=== PATIENT | male | born 1950 | race Caucasian/White ===

== ENCOUNTER → 2020-05-19 10:06 | Outpatient (BNVA) | payer MEDICARE, SELFPAY | PROVIDERS: PCP Family Medicine; Visit Provider Urology | DX: C67.9 Malignant neoplasm of bladder, unspecified (principal); N40.1 Benign prostatic hyperplasia with lower urinary tract symptoms; N13.8 Other obstructive and reflux uropathy | CPT/HCPCS: 52000; 99212 ==

== ENCOUNTER 2020-06-01 08:48 | Day surgery (SDC) | payer MEDICARE, SELFPAY ==
--- NOTE | 2020-05-29 11:59 | HO.ANESPROP2 ---
Documented by User: Kacie Fink 05/29/20 12:07 HPI - Anesthesia Eval Consult details Narrative: 69yo M for Cystoscopy, TURB PMFSH Past Medical History Medical History Anemia Bladder cancer BPH loc w urin obs/LUTS GERD (gastroesophageal reflux disease) Gout HLD (hyperlipidemia) HTN (hypertension) Hypothyroid Osteoarthritis Renal cancer S/p nephrectomy Surgical History Surgical History H/O nephroureterectomy History of biopsy of bladder Social History Social History Advance Directives: No Advance Directives Information Provided: No Meds Allergies Allergy/AdvReac Type Severity Reaction Status Date / Time No Known Allergies Allergy Unverified 04/16/20 19:02 [No Known Allergies*] Exam Exam Date and Time: May 29, 2020 1159 Pertinent Lab Results Pertinent Lab Results: Laboratory Tests 12/16/19 09:40 BUN 20 H Creatinine 1.20 Assessment and Plan Assessment Anesthesia Assessment: Chart Reviewed Documented by User: Shaista Rodríguez 06/01/20 10:19 PMFSH Past Medical History Medical History Anemia Bladder cancer BPH loc w urin obs/LUTS GERD (gastroesophageal reflux disease) Gout HLD (hyperlipidemia) HTN (hypertension) Hypothyroid Osteoarthritis Renal cancer S/p nephrectomy Surgical History Surgical History H/O nephroureterectomy History of biopsy of bladder Social History Social History Advance Directives: No Advance Directives Information Provided: No Meds Allergies Allergy/AdvReac Type Severity Reaction Status Date / Time No Known Allergies Allergy Unverified 04/16/20 19:02 [No Known Allergies*]
[2020-06-01] VITALS (12 sets, daily range): BP systolic 167–185; BP diastolic 74–105; PULSE 81–97; RESP 16–20; TEMP 36.4–37.1; O2SAT 95–98
[2020-06-01] MEDS: levoFLOXacin 500 MG TABLET PO (11:00)
--- NOTE | 2020-06-01 11:06 | MHC.SHP ---
Pre-Procedural Eval Section A The patient is an INPATIENT: No Changes since office visit: No Cold of Flu in the past 2 weeks, No New Medical Problems, No Changes in Medication and No Patient answered all questions The History & Physical has been completed within 30 days and I have reviewed it.: Yes Section B Chief Complaint: hx of Bladder Cancer Allergies: Allergies Allergy/AdvReac Type Severity Reaction Status Date / Time No Known Allergies Allergy Unverified 04/16/20 19:02 [No Known Allergies*] Plan Patient has been examined and remains a candidate for the planned procedure
[2020-06-01] MEDS: Lactated Ringers 1,000 ML 50 ML IVCONT (11:12)
--- NOTE | 2020-06-01 11:20 | P.CONAN_ITS ---
[facility] Past Medical History Medical History Anemia Bladder cancer BPH loc w urin obs/LUTS GERD (gastroesophageal reflux disease) Gout HLD (hyperlipidemia) HTN (hypertension) Hypothyroid Osteoarthritis Renal cancer S/p nephrectomy Surgical History Surgical History H/O nephroureterectomy History of biopsy of bladder Social History Social History Are you a primary insurance healthcare consultant to a significant other at home: No Do you presently have visiting nurse or other home services: No Smoking Status: Never smoker Use of substances other than those prescribed or required for medical reasons: No Advance Directives: No Advance Directives Information Provided: No Meds Allergies Allergy/AdvReac Type Severity Reaction Status Date / Time No Known Allergies Allergy Unverified 04/16/20 19:02 [No Known Allergies*] Exam Exam Date and Time: June 01, 2020 1120 Height,Weight and Vital Signs: Height 5 ft 3 in Weight 72.575 kg Last Vital Signs Temp 98.7 F 06/01/20 10:41 Pulse 81 06/01/20 10:41 Resp 16 06/01/20 10:41 BP 167/84 H 06/01/20 10:41 Pulse Ox 97 06/01/20 10:41 Airway TM Dist: >3cm Neck ROM: Full Denture: Upper and Lower Assessment and Plan Final Anesthetic Review NPO: Yes ASA Class: II Final Preanesthetic Review: No Changes in Pt Med Stat, Meds/Allgs Chart Reviewed, Consent Obtained/Reviewed and DNR Form (If Appl.) Patient Risk: Low
--- NOTE | 2020-06-01 12:10 | PM.OP ---
Brief Operative Note Date of procedure: 06/01/20 Pre-op diagnosis: Bladder Cancer Procedure: Bladder Cancer - medium Surgeon: Will Early MD Anesthesia: GLMA Estimated blood loss (mL): 0 Pathology: none sent Condition: stable Disposition: same day
--- NOTE | 2020-06-01 12:11 | P.OP_ITS ---
Operative Note Operative Note Narrative: PreOperative Diagnosis: Bladder tumor superficial Post Operative Diagnosis: bladder tumor superficial Procedure: TURBT medium, gemcitabine bladder instillation Surgeon: Dr Will Early Anesthesia: general Indications for procedure: 69-year-old male. Known bladder cancer patient. Had recurrence on left side wall superficial. Was larger than a quarter. Needed cauterization in operating room and gemcitabine. Risks and benefits discussed. Procedure: After informed consent was verified patient brought to the operating room placed in a supine position. Anesthesia administered per protocol. Patient placed in modified dorsal lithotomy position and prepped and draped in sterile fashion. He was prepped and draped in sterile fashion. Safety pause time-out was performed. 26 [place] resectoscope placed. No abnormality noted anterior posterior urethra. left bladder sidewall with superficial disease. This was all fulgurated. It did come down close to the ureteric orifice. At completion resectoscope was removed. No specimens were sent. Bernal catheter placed. 2 g gemcitabine in 100 mg normal saline placed. This will dwell for 1 hour.
[2020-06-01] MEDS: oxyCODONE HCl Immed Release 5 MG TABLET PO (12:26)
[2020-06-01] MEDS: fentaNYL citrate/PF 100 MCG/2 ML VIAL 25 MCG IVPUSH ×4 (12:28→12:55)
== END 2020-06-01 23:59 | disposition home or self-care (01) ==
PROVIDERS: PCP Family Medicine; Visit Provider Urology
PROC: 0TJB8ZZ Inspection of Bladder, Via Natural or Artificial Opening Endoscopic (ICD-10-PCS; CPT 52000; principal; 2020-06-01 10:30)
DX: C67.9 Malignant neoplasm of bladder, unspecified (principal)
CPT/HCPCS: 52235; 51720; J1100; J2405; J3010; J9201

== ENCOUNTER 2021-05-14 13:28 | Outpatient (REF) | payer MEDICARE, SELFPAY ==
[2021-05-14 17:40] LABS: Urine Cytology See Pathology rpt
== END 2021-05-14 13:29 | disposition home or self-care (01) ==
LOC: HO.LAB 13:28
PROVIDERS: Visit Provider Urology
DX: C67.9 Malignant neoplasm of bladder, unspecified (principal); N40.1 Benign prostatic hyperplasia with lower urinary tract symptoms; C66.9 Malignant neoplasm of unspecified ureter
CPT/HCPCS: 88112; 99212

== ENCOUNTER 2021-06-23 12:30 | Outpatient (REF) | payer MEDICARE, SELFPAY ==
[2021-06-23 16:48] LABS: Urine Cytology See Pathology rpt
== END 2021-06-23 12:31 | disposition home or self-care (01) ==
LOC: HO.LAB 12:30
PROVIDERS: Visit Provider Urology
DX: C67.9 Malignant neoplasm of bladder, unspecified (principal); C79.02 Secondary malignant neoplasm of left kidney and renal pelvis; N40.1 Benign prostatic hyperplasia with lower urinary tract symptoms; N13.8 Other obstructive and reflux uropathy; I10 Essential (primary) hypertension; E78.5 Hyperlipidemia, unspecified; E03.9 Hypothyroidism, unspecified; Z90.5 Acquired absence of kidney; Z90.6 Acquired absence of other parts of urinary tract
CPT/HCPCS: 52000; 88112; 99212

== ENCOUNTER 2021-08-02 08:31 | Day surgery (SDC) | payer MEDICARE, MEDICAID, SELFPAY ==
--- NOTE | 2021-07-28 15:20 | P.CONAN_ITS ---
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 (Acute) Bladder cancer (Acute) BPH loc w urin obs/LUTS (Acute) Past Medical History Medical History (Updated 06/23/21 @ 13:44 by Will Early MD) Anemia Bladder cancer BPH loc w urin obs/LUTS GERD (gastroesophageal reflux disease) Gout HLD (hyperlipidemia) HTN (hypertension) Hypothyroid Osteoarthritis Surgical History Surgical History (Updated 07/26/21 @ 13:34 by Rossy Beard RN) H/O nephroureterectomy History of biopsy of bladder Social History Social History Are you a primary workforce investment act career manager to a significant other at home: No Do you presently have visiting nurse or other home services: No Patient Tobacco Use Status: Tobacco use Unknown Advance Directives Information Provided: Yes (informational brochure mailed) Advance Directives on File: No Meds Allergies Allergy/AdvReac Type Severity Reaction Status Date / Time No Known Allergies Allergy Verified 06/23/21 13:15 [No Known Allergies*] Home Medications Medication Instructions Recorded Confirmed Last Taken Type acetaminophen 650 mg 1,300 mg PO Q8H PRN 05/14/21 07/26/21 Unknown History tablet,extended release (Arthritis Pain Reliever) allopurinol 100 mg tablet 200 mg PO DAILY 05/14/21 07/26/21 Unknown History atorvastatin 80 mg tablet 80 mg PO DAILY 05/14/21 07/26/21 Unknown History brimonidine 0.2 % eye drops 1 drp OPHTHALMIC (EYE) DAILY ml 05/14/21 07/26/21 Unknown History ergocalciferol (vitamin D2) 1,250 1,250 mcg PO QWEEK 05/14/21 07/26/21 Unknown History mcg (50,000 unit) capsule gemfibrozil 600 mg tablet 600 mg PO BID 05/14/21 07/26/21 Unknown History hydrochlorothiazide 25 mg tablet 25 mg PO DAILY 05/14/21 07/26/21 Unknown History lisinopril 40 mg tablet 40 mg PO DAILY 05/14/21 07/26/21 Unknown History melatonin 5 mg tablet 5 mg PO BEDTIME PRN 05/14/21 07/26/21 Unknown History Exam Exam Date and Time: July 28, 2021 1520 Height,Weight and Vital Signs: Height 6 ft 3 in Weight 72.575 kg Assessment and Plan Assessment Anesthesia Assessment: Chart Reviewed Documented by User: Everett Antonio 08/02/21 10:31 PMFSH Past Medical History Medical History (Updated 06/23/21 @ 13:44 by Will Early MD) Anemia Bladder cancer BPH loc w urin obs/LUTS GERD (gastroesophageal reflux disease) Gout HLD (hyperlipidemia) HTN (hypertension) Hypothyroid Osteoarthritis Family History Family history of problems with anesthesia: No Surgical History Surgical History (Updated 07/26/21 @ 13:34 by Rossy Beard RN) H/O nephroureterectomy History of biopsy of bladder History of Problems with Anesthesia: No Social History Social History Are you a primary workforce investment act career manager to a significant other at home: No Do you presently have visiting nurse or other home services: No Patient Tobacco Use Status: Tobacco use Unknown Advance Directives Information Provided: Yes (informational brochure mailed) Advance Directives on File: No Meds Allergies Allergy/AdvReac Type Severity Reaction Status Date / Time No Known Allergies Allergy Verified 06/23/21 13:15 [No Known Allergies*] Home Medications Medication Instructions Recorded Confirmed Last Taken Type acetaminophen 650 mg 1,300 mg PO Q8H PRN 05/14/21 07/26/21 Unknown History tablet,extended release (Arthritis Pain Reliever) allopurinol 100 mg tablet 200 mg PO DAILY 05/14/21 07/26/21 Unknown History atorvastatin 80 mg tablet 80 mg PO DAILY 05/14/21 07/26/21 Unknown History brimonidine 0.2 % eye drops 1 drp OPHTHALMIC (EYE) DAILY ml 05/14/21 07/26/21 Unknown History ergocalciferol (vitamin D2) 1,250 1,250 mcg PO QWEEK 05/14/21 07/26/21 Unknown History mcg (50,000 unit) capsule gemfibrozil 600 mg tablet 600 mg PO BID 05/14/21 07/26/21 Unknown History hydrochlorothiazide 25 mg tablet 25 mg PO DAILY 05/14/21 07/26/21 Unknown History lisinopril 40 mg tablet 40 mg PO DAILY 05/14/21 07/26/21 Unknown History melatonin 5 mg tablet 5 mg PO BEDTIME PRN 05/14/21 07/26/21 Unknown History Exam Airway Mallampati Class: II Neck ROM: Full Loose/Missing/Broken Teeth: Yes Heart: rrr Lungs: bl breath sounds Assessment and Plan Final Anesthetic Review Family History of Problems with Anesthesia: No History of Problems with Anesthesia: No NPO: Yes ASA Class: III Patient Risk: Intermediate Procedure Risk: Intermediate Anesthetic Plan Anesthetic Plan: GA Disposition: Standard PACU
[2021-08-02] VITALS (17 sets, daily range): BP systolic 132–223; BP diastolic 93–124; PULSE 74–103; RESP 16–22; TEMP 36.1–37; O2SAT 94–97
[2021-08-02] MEDS: Lactated Ringers 1,000 ML 100 ML IVCONT (09:15)
--- NOTE | 2021-08-02 11:22 | MHC.SHP ---
Pre-Procedural Eval Section A Date of Service: 08/02/21 Section B Chief Complaint: neoplasm of bladder Details of Present Illness: recurrent neoplasm bladder on cystoscopy in office Relevant Social History: None Present Medications: see Short Stay Collaborative assessment Medical History: Significant History History of Previous Operations: Relevant previous surgery/procedure and date(s) Allergies: Allergies Allergy/AdvReac Type Severity Reaction Status Date / Time No Known Allergies Allergy Verified 06/23/21 13:15 [No Known Allergies*] Review of Systems Sugical H&P ROS: Negative: Constitution, Cardiovascular, Respiratory, Neurological, Psychiatric, Hem-Onc, Allergic/Immunologic, Gastrointestinal, Genitourinary, Musculoskeletal, Integumentary, Endocrine and Eyes/Ears/Nose/Throat Exam Surgical H&P Exam: Normal: HEENT, Normal: Heart, Normal: Lungs, Normal: Extremities, Normal: Abdomen, Normal: Skin and Normal: Neurological Plan Diagnosis/Plan: Unchanged ( cystoscopy, TUR, gemcitabine installation) I have reviewed the history and physical and performed a pertinent physical examination on my patient. No changes have occurred unless specified.
--- NOTE | 2021-08-02 13:55 | P.OP_ITS ---
Operative Note Operative Note Date of Service: 08/02/21 Narrative: PreOperative Diagnosis: bladder cancer Post Operative Diagnosis: bladder cancer Procedure: TURBT medium and Gemcitabine installation Surgeon: Dr Will Early Anesthesia: general Indications for procedure: 71-year-old male. Prior prostatectomy with radiation and upper tract transitional carcinoma. Right nephro ureterectomy. Recurrent superficial bladder cancer. On surveillance cystoscopy found to have superficial recurrent cancer that has slowly progressed over 6 months. On right lower bladder sidewall. Recommendation TURBT with gemcitabine. Due to prior high-grade findings will need induction 6 week course when complete. Procedure: After informed consent was verified the patient was brought to the operating room and placed in a supine position. anesthesia was administered per protocol. the patient was placed in a modified dorsal lithotomy position and prepped and draped in a sterile fashion. Safety pause time-out was performed. Antibiotics were confirmed. A 26 [place] continuous flow resectoscope was inserted per urethra. The visual obturator was used in order to minimize potential for urethral damage. recurrent superficial tumors seen at right bladder neck area extending around the bladder neck from the 7 o'clock to 12 o'clock position. Area gently resected and fulgurated. Small areas recurrence seen at the 6 o'clock position on the trigone. No disease detected on posterior or lateral sidewalls. At the completion of the procedure the bladder was irrigated. The cystoscope was removed. A [address] [place] [address] Bernal catheter was inserted into the bladder. 10 cc was placed in the balloon. 2 g of gemcitabine in 100 cc of normal saline was instilled into the bladder. the flow from the catheter was left clamped. The inflow to the catheter was attached to a 3 L normal saline bag. The patient tolerated the procedure well. They were extubated in the operating room and transferred in stable condition to the recovery area. Gemcitabine will remain in the bladder for 1 hour. At the completion of 1 hour the clamp will be removed. The gemcitabine will be allowed to egress to the urine collection bag. The 3 L bag of normal saline will be run at maximum rate through the bladder in order to dilute any residual gemcitabine. The Bernal catheter will then be removed. Pathology: Recurrent superficial bladder cancer Drains: Bernal catheter
[2021-08-02] MEDS: Labetalol HCL 100 MG/20 ML VIAL 10 MG IVPUSH ×2 (15:59→16:41)
[2021-08-02] MEDS: lisinopriL 20 MG TABLET PO (16:52)
[2021-08-02] MEDS: oxyCODONE HCl Immed Release 5 MG TABLET PO (17:07)
[2021-08-02] MEDS: Acetaminophen 325 MG TABLET 650 MG PO (17:07)
== END 2021-08-02 18:02 | disposition home or self-care (01) ==
PROVIDERS: Visit Provider Urology
PROC: 0TBB8ZZ Excision of Bladder, Via Natural or Artificial Opening Endoscopic (ICD-10-PCS; CPT 52235; principal; 2021-08-02 11:00)
DX: D09.0 Carcinoma in situ of bladder (principal); D64.9 Anemia, unspecified; N40.1 Benign prostatic hyperplasia with lower urinary tract symptoms; I10 Essential (primary) hypertension; Z79.899 Other long term (current) drug therapy
CPT/HCPCS: 52235; 51720; 88307; 88342; J1100; J1956; J2250; J2405; J3010; J9201

== ENCOUNTER → 2021-08-10 15:05 | Outpatient (BNVA) | payer OTHER, MEDICARE, MEDICAID, SELFPAY | PROVIDERS: Visit Provider Urology | DX: Z48.3 Aftercare following surgery for neoplasm (principal); C67.9 Malignant neoplasm of bladder, unspecified; N40.1 Benign prostatic hyperplasia with lower urinary tract symptoms; N13.8 Other obstructive and reflux uropathy; Z85.528 Personal history of other malignant neoplasm of kidney; Z90.5 Acquired absence of kidney | CPT/HCPCS: Q3014 ==

== ENCOUNTER 2021-12-28 10:37 | Outpatient (REF) | payer OTHER, SELFPAY ==
[2021-12-28 17:47] LABS: Urine Cytology See Pathology rpt
== END 2021-12-28 10:38 | disposition home or self-care (01) ==
LOC: HO.LAB 10:37
PROVIDERS: Visit Provider Urology
DX: C67.9 Malignant neoplasm of bladder, unspecified (principal); D09.0 Carcinoma in situ of bladder
CPT/HCPCS: 52000; 88112; 99212

== ENCOUNTER 2022-01-17 13:06 | Day surgery (SDC) | payer OTHER, SELFPAY ==
--- NOTE | 2022-01-14 09:49 | HO.ANESPROP2 ---
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 (Acute) Bladder cancer (Acute) BPH loc w urin obs/LUTS (Acute) Past Medical History Medical History Anemia Bladder cancer BPH loc w urin obs/LUTS GERD (gastroesophageal reflux disease) Gout HLD (hyperlipidemia) HTN (hypertension) Hypothyroid Osteoarthritis Family History Family history of problems with anesthesia: No Surgical History Surgical History H/O nephroureterectomy History of biopsy of bladder History of Problems with Anesthesia: No Social History Social History Are you a primary career resource technician to a significant other at home: No Do you presently have visiting nurse or other home services: No Patient Tobacco Use Status: Tobacco use Unknown Meds Allergies Allergy/AdvReac Type Severity Reaction Status Date / Time No Known Allergies Allergy Verified 12/28/21 10:58 [No Known Allergies*] Home Medications Medication Instructions Recorded Confirmed Last Taken Type acetaminophen 650 mg 1,300 mg PO Q8H PRN Pain 05/14/21 07/26/21 Unknown History tablet,extended release (Arthritis Pain Reliever) allopurinol 100 mg tablet 200 mg PO DAILY 05/14/21 07/26/21 Unknown History atorvastatin 80 mg tablet 80 mg PO DAILY 05/14/21 07/26/21 Unknown History brimonidine 0.2 % eye drops 1 drp ophthalmic (eye) DAILY 05/14/21 07/26/21 Unknown History ergocalciferol (vitamin D2) 1,250 1,250 mcg PO QWEEK 05/14/21 07/26/21 Unknown History mcg (50,000 unit) capsule gemfibrozil 600 mg tablet 600 mg PO BID 05/14/21 07/26/21 Unknown History hydrochlorothiazide 25 mg tablet 25 mg PO DAILY 05/14/21 07/26/21 Unknown History lisinopril 40 mg tablet 40 mg PO DAILY 05/14/21 07/26/21 Unknown History melatonin 5 mg tablet 5 mg PO BEDTIME PRN insomnia 05/14/21 07/26/21 Unknown History Exam Exam Date and Time: January 14, [id number] Assessment and Plan Assessment Anesthesia Assessment: Chart Reviewed Final Anesthetic Review Family History of Problems with Anesthesia: No History of Problems with Anesthesia: No
[2022-01-17] VITALS (7 sets, daily range): BP systolic 133–177; BP diastolic 68–100; PULSE 81–105; RESP 16–20; TEMP 36.4–36.6; O2SAT 94–100; BMI 27.4
[2022-01-17] MEDS: Lactated Ringers 1,000 ML 100 ML IVCONT (14:51)
--- NOTE | 2022-01-17 17:24 | MHC.SHP ---
Pre-Procedural Eval Section A Date of Service: 01/17/22 The patient is an INPATIENT: No Changes since office visit: No Cold of Flu in the past 2 weeks, No New Medical Problems, No Changes in Medication and No Patient answered all questions The History & Physical has been completed within 30 days and I have reviewed it.: Yes Section B Chief Complaint: neoplasm of bladder Details of Present Illness: TURBT Allergies: Allergies Allergy/AdvReac Type Severity Reaction Status Date / Time No Known Allergies Allergy Verified 12/28/21 10:58 [No Known Allergies*] Review of Systems Sugical H&P ROS: Negative: Constitution, Cardiovascular, Respiratory, Neurological, Psychiatric, Hem-Onc, Allergic/Immunologic, Gastrointestinal, Genitourinary, Musculoskeletal, Integumentary, Endocrine and Eyes/Ears/Nose/Throat Exam Surgical H&P Exam: Normal: HEENT, Normal: Heart, Normal: Lungs, Normal: Extremities, Normal: Abdomen, Normal: Skin and Normal: Neurological Plan Diagnosis/Plan: Unchanged ( TUR of multiple small bladder tumor recurrences) I have reviewed the history and physical and performed a pertinent physical examination on my patient. No changes have occurred unless specified.
--- NOTE | 2022-01-17 18:54 | P.CONAN_ITS ---
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 (Acute) Bladder cancer (Acute) BPH loc w urin obs/LUTS (Acute) Past Medical History Medical History Anemia Bladder cancer BPH loc w urin obs/LUTS GERD (gastroesophageal reflux disease) Gout HLD (hyperlipidemia) HTN (hypertension) Hypothyroid Osteoarthritis Family History Family history of problems with anesthesia: No Surgical History Surgical History H/O nephroureterectomy History of biopsy of bladder History of Problems with Anesthesia: No Social History Social History Are you a primary hospice patient care secretary to a significant other at home: No Do you presently have visiting nurse or other home services: No Patient Tobacco Use Status: Former Tobacco user Tobacco use type: Cigarette Use of substances other than those prescribed or required for medical reasons: No Are you DNR?: No Advance Directives: No Advance Directives Information Provided: Yes Recently lost weight without trying: No Eating poorly because of decreased appetite: No Nutrition Risks: No Nutritional Risk Meds Allergies Allergy/AdvReac Type Severity Reaction Status Date / Time No Known Allergies Allergy Verified 12/28/21 10:58 [No Known Allergies*] Active Medications: Current Medications Acetaminophen (Acetaminophen 325 Mg Tablet) 650 mg PO ONCE ONE Stop: 01/17/22 18:47 Lactated Ringer's (Lr) 1,000 mls @ 100 mls/hr IVCONT .Q10H SOILA Last Admin: 01/17/22 14:51 Dose: 100 mls/hr Phenazopyridine HCl (Phenazopyridine Hcl 100 Mg Tablet) 100 mg PO ONCE ONE Stop: 01/17/22 18:47 Home Medications Medication Instructions Recorded Confirmed Last Taken Type acetaminophen 650 mg 1,300 mg PO Q8H PRN Pain 05/14/21 07/26/21 Unknown History tablet,extended release (Arthritis Pain Reliever) allopurinol 100 mg tablet 200 mg PO DAILY 05/14/21 07/26/21 Unknown History atorvastatin 80 mg tablet 80 mg PO DAILY 05/14/21 07/26/21 Unknown History brimonidine 0.2 % eye drops 1 drp ophthalmic (eye) DAILY 05/14/21 07/26/21 Unknown History ergocalciferol (vitamin D2) 1,250 1,250 mcg PO QWEEK 05/14/21 07/26/21 Unknown History mcg (50,000 unit) capsule gemfibrozil 600 mg tablet 600 mg PO BID 05/14/21 07/26/21 Unknown History hydrochlorothiazide 25 mg tablet 25 mg PO DAILY 05/14/21 07/26/21 Unknown History lisinopril 40 mg tablet 40 mg PO DAILY 05/14/21 07/26/21 01/17/22 History melatonin 5 mg tablet 5 mg PO BEDTIME PRN insomnia 05/14/21 07/26/21 Unknown History aspirin 01/17/22 01/17/22 Unknown History Exam Exam Date and Time: January 17, 2022 1854 Height,Weight and Vital Signs: Height 5 ft 3 in Weight 70.307 kg Last Vital Signs Temp 97.8 F 01/17/22 14:49 Pulse 81 01/17/22 14:49 Resp 18 01/17/22 14:49 BP 167/85 H 01/17/22 15:00 Pulse Ox 96 01/17/22 14:49 O2 Del Method 01/17/22 14:49 Airway Mallampati Class: I TM Dist: >3cm Neck ROM: Full Loose/Missing/Broken Teeth: No Heart: RRR Lungs: CTA Assessment and Plan Assessment Anesthesia Assessment: Anesthesia Plan Discussed and Chart Reviewed Final Anesthetic Review Family History of Problems with Anesthesia: No History of Problems with Anesthesia: No NPO: Yes ASA Class: II Final Preanesthetic Review: No Changes in Pt Med Stat, Meds/Allgs Chart Reviewed and Anes Risks/Benef Reviewed Patient Risk: Intermediate Procedure Risk: Low Anesthetic Plan Anesthetic Plan: GA Disposition: Standard PACU
--- NOTE | 2022-08-17 09:53 | W.PM.OPN ---
Operative Note Operative Note Date of Service: 01/17/22 Narrative: PreOperative Diagnosis: bladder cancer Post Operative Diagnosis: bladder cancer Procedure: TURBT multiple small 1 cm areas, approximately 5 Surgeon: Dr Will Early Anesthesia: general Indications for procedure: Recurrent superficial bladder cancer. Cystoscopy in office with multiple small areas Procedure: After informed consent was verified the patient was brought to the operating room and placed in a supine position. Anesthesia was administered per protocol. The patient was placed in a modified dorsal lithotomy position and prepped and draped in a sterile fashion. Safety pause time-out was performed. Antibiotics were confirmed. A 26 Chinese continuous flow resectoscope was inserted per urethra. The visual obturator was used in order to minimize potential for urethral damage. Multiple small approximately 5, 1 cm bladder lesions seen. TURBT performed on all areas with fulguration 1 cm around each lesion. The patient tolerated the procedure well. They were extubated in the operating room and transferred in stable condition to the recovery area. Pathology: Bladder lesions Drains: None
== END 2022-01-17 20:20 | disposition home or self-care (01) ==
PROVIDERS: Visit Provider Urology
PROC: 0TBB8ZZ Excision of Bladder, Via Natural or Artificial Opening Endoscopic (ICD-10-PCS; CPT 52234; principal; 2022-01-17 15:20)
DX: C67.9 Malignant neoplasm of bladder, unspecified (principal); N40.1 Benign prostatic hyperplasia with lower urinary tract symptoms; I10 Essential (primary) hypertension; D64.9 Anemia, unspecified; K21.9 Gastro-esophageal reflux disease without esophagitis; E78.5 Hyperlipidemia, unspecified; Z87.891 Personal history of nicotine dependence; Z79.899 Other long term (current) drug therapy
CPT/HCPCS: 52234; J1956; J3010

== ENCOUNTER 2022-08-18 12:41 | Outpatient (REF) | payer OTHER, SELFPAY ==
[2022-08-18 17:10] LABS: Urine Cytology See Pathology rpt
== END 2022-08-18 12:42 | disposition home or self-care (01) ==
LOC: HO.LAB 12:41
PROVIDERS: PCP Family Medicine; Visit Provider Urology
DX: C67.9 Malignant neoplasm of bladder, unspecified (principal)
CPT/HCPCS: 52000; 88112; 88121; 99212

== ENCOUNTER 2022-09-05 10:39 | Day surgery (SDC) | payer OTHER, SELFPAY ==
[2022-08-30 12:37] VITALS: BMI 27.4
[2022-09-05] VITALS (10 sets, daily range): BP systolic 131–168; BP diastolic 78–93; PULSE 80–117; RESP 15–20; TEMP 36.2–36.8; O2SAT 92–96
[2022-09-05] MEDS: Lactated Ringers 1,000 ML 50 ML IVCONT (11:34)
--- NOTE | 2022-09-05 11:47 | HO.ANESPROP2 ---
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 (Acute) CIS (carcinoma in situ of bladder) (Acute) Bladder cancer (Acute) BPH loc w urin obs/LUTS (Acute) Past Medical History Medical History (Updated 08/30/22 @ 11:56 by Barbara Mancini, RN) Anemia Arthritis Bladder cancer BPH loc w urin obs/LUTS GERD (gastroesophageal reflux disease) Gout HLD (hyperlipidemia) HTN (hypertension) Hypothyroid Osteoarthritis Family History Family history of problems with anesthesia: No Surgical History Surgical History (Updated 08/30/22 @ 12:43 by Barbara Mancini RN) H/O nephroureterectomy History of biopsy of bladder History of Problems with Anesthesia: No Social History Social History (Updated 08/30/22 @ 12:44 by Barbara Mancini RN) Are you a primary child care centre director to a significant other at home: No Do you presently have visiting nurse or other home services: Yes ([employer]) Patient Tobacco Use Status: Former Tobacco user Quit Date: 2006 Tobacco use type: Cigarette Have you been hit, kicked, punched, or otherwise hurt by someone within the past year? If so, by whom?: No Are you DNR?: No Advance Directives: No Advance Directives Information Provided: Yes Advance Directives on File: No Recently lost weight without trying: Yes How much weight loss: 2-13 pounds Eating poorly because of decreased appetite: No Nutrition screen score: 3 Poor oral hygiene: Yes (no teeth, no dentures) Meds Allergies Allergy/AdvReac Type Severity Reaction Status Date / Time No Known Allergies Allergy Verified 08/18/22 13:11 [No Known Allergies*] Active Medications: Current Medications Mitomycin 40 mg/ Sodium (Chloride) 20 mls @ 10 mls/hr INTRAVESIC ONCE SOILA Stop: 09/05/22 23:59 Lactated Ringer's (Lr) 1,000 mls @ 50 mls/hr IVCONT .Q20H SOILA Last Admin: 09/05/22 11:34 Dose: 50 mls/hr Home Medications Medication Instructions Recorded Confirmed Last Taken Type acetaminophen 650 mg 1,300 mg PO Q8H PRN Pain 05/14/21 09/05/22 Unknown History tablet,extended release (Arthritis Pain Reliever) allopurinol 100 mg tablet 100 mg PO DAILY 05/14/21 09/05/22 Unknown History atorvastatin 80 mg tablet 80 mg PO DAILY 05/14/21 09/05/22 Unknown History brimonidine 0.2 % eye drops 1 drp ophthalmic (eye) DAILY 05/14/21 09/05/22 Unknown History ergocalciferol (vitamin D2) 1,250 1,250 mcg PO QWEEK 05/14/21 09/05/22 Unknown History mcg (50,000 unit) capsule gemfibrozil 600 mg tablet 600 mg PO BID 05/14/21 02/11/22 Unknown History hydrochlorothiazide 25 mg tablet 50 mg PO DAILY 05/14/21 09/05/22 09/05/22 History lisinopril 40 mg tablet 40 mg PO DAILY 05/14/21 09/05/22 09/05/22 History melatonin 5 mg tablet 5 mg PO BEDTIME PRN insomnia 05/14/21 09/05/22 Unknown History cholecalciferol (vitamin D3) 1,250 1,250 mcg PO QWEEK 08/18/22 09/05/22 Unknown History mcg (50,000 unit) capsule aspirin 81 mg capsule 81 mg PO DAILY 09/05/22 09/05/22 08/29/22 History Exam Exam Date and Time: September 05, 2022 1147 Height,Weight and Vital Signs: Height 5 ft 3 in Weight 70.307 kg Last Vital Signs Temp 98.3 F 09/05/22 11:17 Pulse 87 09/05/22 11:17 Resp 16 09/05/22 11:17 BP 150/87 H 09/05/22 11:17 Pulse Ox 92 09/05/22 11:17 O2 Del Method 09/05/22 11:17 Assessment and Plan Final Anesthetic Review Family History of Problems with Anesthesia: No History of Problems with Anesthesia: No
--- NOTE | 2022-09-05 11:47 | HO.ANESPROP2 ---
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 (Acute) CIS (carcinoma in situ of bladder) (Acute) Bladder cancer (Acute) BPH loc w urin obs/LUTS (Acute) Past Medical History Medical History (Updated 08/30/22 @ 11:56 by Barbara Mancini, RN) Anemia Arthritis Bladder cancer BPH loc w urin obs/LUTS GERD (gastroesophageal reflux disease) Gout HLD (hyperlipidemia) HTN (hypertension) Hypothyroid Osteoarthritis Family History Family history of problems with anesthesia: No Surgical History Surgical History (Updated 08/30/22 @ 12:43 by Barbara Mancini, FABRICIO) H/O nephroureterectomy History of biopsy of bladder History of Problems with Anesthesia: No Social History Social History (Updated 08/30/22 @ 12:44 by Barbara Mancini RN) Are you a primary healthcare recruiter to a significant other at home: No Do you presently have visiting nurse or other home services: Yes ([employer]) Patient Tobacco Use Status: Former Tobacco user Quit Date: 2006 Tobacco use type: Cigarette Have you been hit, kicked, punched, or otherwise hurt by someone within the past year? If so, by whom?: No Are you DNR?: No Advance Directives: No Advance Directives Information Provided: Yes Advance Directives on File: No Recently lost weight without trying: Yes How much weight loss: 2-13 pounds Eating poorly because of decreased appetite: No Nutrition screen score: 3 Poor oral hygiene: Yes (no teeth, no dentures) Meds Allergies Allergy/AdvReac Type Severity Reaction Status Date / Time No Known Allergies Allergy Verified 08/18/22 13:11 [No Known Allergies*] Active Medications: Current Medications Mitomycin 40 mg/ Sodium (Chloride) 20 mls @ 10 mls/hr INTRAVESIC ONCE SOILA Stop: 09/05/22 23:59 Lactated Ringer's (Lr) 1,000 mls @ 50 mls/hr IVCONT .Q20H SOILA Last Admin: 09/05/22 11:34 Dose: 50 mls/hr Home Medications Medication Instructions Recorded Confirmed Last Taken Type acetaminophen 650 mg 1,300 mg PO Q8H PRN Pain 05/14/21 09/05/22 Unknown History tablet,extended release (Arthritis Pain Reliever) allopurinol 100 mg tablet 100 mg PO DAILY 05/14/21 09/05/22 Unknown History atorvastatin 80 mg tablet 80 mg PO DAILY 05/14/21 09/05/22 Unknown History brimonidine 0.2 % eye drops 1 drp ophthalmic (eye) DAILY 05/14/21 09/05/22 Unknown History ergocalciferol (vitamin D2) 1,250 1,250 mcg PO QWEEK 05/14/21 09/05/22 Unknown History mcg (50,000 unit) capsule gemfibrozil 600 mg tablet 600 mg PO BID 05/14/21 02/11/22 Unknown History hydrochlorothiazide 25 mg tablet 50 mg PO DAILY 05/14/21 09/05/22 09/05/22 History lisinopril 40 mg tablet 40 mg PO DAILY 05/14/21 09/05/22 09/05/22 History melatonin 5 mg tablet 5 mg PO BEDTIME PRN insomnia 05/14/21 09/05/22 Unknown History cholecalciferol (vitamin D3) 1,250 1,250 mcg PO QWEEK 08/18/22 09/05/22 Unknown History mcg (50,000 unit) capsule aspirin 81 mg capsule 81 mg PO DAILY 09/05/22 09/05/22 08/29/22 History Exam Exam Date and Time: September 05, 2022 114 Height,Weight and Vital Signs: Height 5 ft 3 in Weight 70.307 kg Last Vital Signs Temp 98.3 F 09/05/22 11:17 Pulse 87 09/05/22 11:17 Resp 16 09/05/22 11:17 BP 150/87 H 09/05/22 11:17 Pulse Ox 92 09/05/22 11:17 O2 Del Method 09/05/22 11:17 Airway Mallampati Class: II TM Dist: >3cm Neck ROM: Limited Heart: rrr Lungs: cta Assessment and Plan Final Anesthetic Review Family History of Problems with Anesthesia: No History of Problems with Anesthesia: No NPO: Yes ASA Class: II Final Preanesthetic Review: No Changes in Pt Med Stat, Meds/Allgs Chart Reviewed, Consent Obtained/Reviewed and Anes Risks/Benef Reviewed Patient Risk: Intermediate Procedure Risk: Intermediate Anesthetic Plan Anesthetic Plan: GA Disposition: Standard PACU
--- NOTE | 2022-09-05 12:18 | MHC.SHP ---
Pre-Procedural Eval Section A Date of Service: 09/05/22 The patient is an INPATIENT: No Changes since office visit: No Cold of Flu in the past 2 weeks, No New Medical Problems, No Changes in Medication and No Patient answered all questions The History & Physical has been completed within 30 days and I have reviewed it.: Yes Section B Chief Complaint: Malignant neoplasm of bladder, unspecified Allergies: Allergies Allergy/AdvReac Type Severity Reaction Status Date / Time No Known Allergies Allergy Verified 08/18/22 13:11 [No Known Allergies*] Plan I have reviewed the history and physical and performed a pertinent physical examination on my patient. No changes have occurred unless specified. Time Spent With Patient Time: Total time managing care of this patient today ____ minutes.
--- NOTE | 2022-09-05 12:59 | W.PM.OPN ---
Operative Note Operative Note Date of Service: 09/05/22 Narrative: PreOperative Diagnosis: recurrence superficial bladder cancer Post Operative Diagnosis: recurrence superficial bladder cancer Procedure: TURBT and mitomycin-C installation Surgeon: Dr Will Early Anesthesia: general Indications for procedure: recurrence visual bladder cancer in office on cystoscopy Procedure: After informed consent was verified the patient was brought to the operating room and placed in a supine position. Anesthesia was administered per protocol. The patient was placed in a modified dorsal lithotomy position and prepped and draped in a sterile fashion. Safety pause time-out was performed. Antibiotics were confirmed. 24 Palestinian cystoscope inserted Multiple small lesions seen throughout bladder More than 12 areas Biopsy performed of the dominant area. Fulguration performed throughout bladder. Each area was approximate size of 50 cent piece. More extensive fulguration performed room bladder neck is recurrence of a visual cancer was around the anterior portion of the bladder neck. Total area fulgurated greater than 5 sq cm At the completion of the procedure the bladder was irrigated. The cystoscope was removed. A [address] Bernal catheter was inserted into the bladder. 10 cc was placed in the balloon. mitomycin-C in 20 cc of normal salineof normal saline was instilled into the bladder. The flow from the catheter was left clamped. The inflow to the catheter was attached to a 3 L normal saline bag. The patient tolerated the procedure well. They were extubated in the operating room and transferred in stable condition to the recovery area. mitomycin-C will remain in the bladder for 1 hour. At the completion of 1 hour the clamp will be removed. The mitomycin-C will be allowed to egress to the urine collection bag. The 3 L bag of normal saline will be run at maximum rate through the bladder in order to dilute any residual mitomycin-C. The Bernal catheter will then be removed. Pathology: bladder biopsies Drains: as above catheter for mitomycin-C
[2022-09-05] MEDS: Acetaminophen 325 MG TABLET 975 MG PO (13:34)
== END 2022-09-05 15:31 | disposition home or self-care (01) ==
PROVIDERS: PCP Family Medicine; Visit Provider Urology
PROC: (CPT 52224; principal; 2022-09-05 13:00)
DX: C67.9 Malignant neoplasm of bladder, unspecified (principal); D09.0 Carcinoma in situ of bladder; Z90.5 Acquired absence of kidney; D64.9 Anemia, unspecified; K21.9 Gastro-esophageal reflux disease without esophagitis; I10 Essential (primary) hypertension; E03.9 Hypothyroidism, unspecified; Z87.891 Personal history of nicotine dependence; Z79.82 Long term (current) use of aspirin; Z79.899 Other long term (current) drug therapy
CPT/HCPCS: 52224; 51720; 88305; J1100; J1956; J2405; J3010; J9280

== ENCOUNTER → 2022-09-22 13:10 | Outpatient (BNVA) | payer OTHER, SELFPAY | PROVIDERS: PCP Family Medicine; Visit Provider Urology | DX: C67.9 Malignant neoplasm of bladder, unspecified (principal); C79.02 Secondary malignant neoplasm of left kidney and renal pelvis; C66.9 Malignant neoplasm of unspecified ureter; N40.1 Benign prostatic hyperplasia with lower urinary tract symptoms; N13.8 Other obstructive and reflux uropathy; Z90.5 Acquired absence of kidney; Z90.6 Acquired absence of other parts of urinary tract; Z79.899 Other long term (current) drug therapy | CPT/HCPCS: Q3014 ==

== ENCOUNTER 2022-12-09 13:00 | Outpatient (RCR) | payer OTHER, SELFPAY ==
[2022-01-28 09:57] VITALS: BP 140/82; PULSE 105; RESP 17; TEMP 36.9; O2SAT 95; BMI 26.9
[2022-01-28 09:59] LABS: Appearance Urine HAZY; Color Urine YELLOW; Glucose Urine UA NEG (NEG); Leukocyte Esterase Urine 2+ (NEG); Nitrite Urine NEG (NEG); PH 5.5 (5.0-8.0); Specific Gravity - Urine 1.025 (1.005-1.025); Urine Blood 3+ (NEG); Urine Ketones NEG (NEG); Urine Protein 1+ MG/DL (NEG-TRACE)
[2022-01-28 10:11] LABS: Squamous Epithelial Cell Urine 1+ /LPF
[2022-01-28 10:12] LABS: RBC Urine 50-75 /HPF (0)
[2022-01-28 10:13] LABS: Bacteria Urine 1+ /LPF
[2022-01-28] MEDS: Lidocaine HCl 2 % Urojet 10 ML JEL.PF.APP TOPICAL (10:46)
--- NOTE | 2022-01-28 12:31 | MHC.HEMONC ---
Pt was in for C1 Gemcitabine bladder instillation, 1st of 3 scheduled tx's, reports feeling fine today, VSS. [facility] environmental scientist Itzel was in to assist w/ [place]-language translation. Nurse reviewed pt's clinical summary and med list, and nurse went through every step of the instillation procedure w/ pt and the aftercare instructions, signed copy was placed in chart, and pt reported he had been through these treatments before at a different office, and he added that he has never had to stay after the instillation and always goes home to wait the 2 hours. Nurse sent tx order to pharmacy, and sent urine for UA, which resulted, results sent to Dr. Early. In spite of RBCs and WBCs present, Dr. Early said ok to treat as urine is negative for nitrites. Nurse contacted Dr. Early to come to sign pt's consent to tx form. Nurse reviewed aftercare instructions w/ pt, who signed, this was filed into chart. Consent form for tx is signed by pt and provider and already in chart. Nurse cleaned pt's urethral meatus w/ betadyne, then injected 2% lidocaine jelly, then inserted 16 Fr coude cath and drained scant amount of yellow urine, then instilled Gemcitabine 2gm in 100 ml NS and removed cath. Pt opted to leave clinic immediately afterward. Nurse gave pt extra specimen cups, in case pt wants to bring urine specimen w/ him for next cycle. Pt said he lives too far away, so it is unlikely he'll be able to drop it off in advance. will and pt stated he would drop off urine specimens for UA the day before tx day on subsequent cycles. Pt was given d/c packet confirming his next tx, C2 on 02/04/22.
[2022-02-04 10:05] VITALS: BP 137/71; PULSE 93; RESP 17; TEMP 37.1; O2SAT 95; BMI 27.2
[2022-02-04 10:48] LABS: Appearance Urine CLOUDY; Color Urine YELLOW; Glucose Urine UA NEG (NEG); Leukocyte Esterase Urine 1+ (NEG); Nitrite Urine NEG (NEG); PH 5.5 (5.0-8.0); Specific Gravity - Urine 1.025 (1.005-1.025); Urine Blood 3+ (NEG); Urine Ketones NEG (NEG); Urine Protein TRACE MG/DL (NEG-TRACE)
[2022-02-04 11:00] LABS: Squamous Epithelial Cell Urine TRACE /LPF
[2022-02-04 11:01] LABS: Bacteria Urine TRACE /LPF
[2022-02-04] MEDS: Lidocaine HCl 2 % Urojet 10 ML JEL.PF.APP TOPICAL (11:34)
--- NOTE | 2022-02-04 15:25 | MHC.HEMONC ---
Here for C2 Gemcitabine bladder instillation. States is feeling good, and tolerated last treatment well. 16fr coude catheter passed into bladder using lidocaine gel. Gemcitabine instilled and catheter removed. While washing pt, he began to void. Urinal in place, and pt voided. Offered for pt to stay for a while, but he declined. Departed unit. Scheduled to return in 1 week for next treatment.
[2022-02-11 09:39] VITALS: BP 123/64; PULSE 89; RESP 18; TEMP 36.6; O2SAT 95; BMI 27.3
[2022-02-11 09:45] LABS: Appearance Urine CLEAR; Color Urine STRAW; Glucose Urine UA NEG (NEG); Leukocyte Esterase Urine 1+ (NEG); Nitrite Urine NEG (NEG); PH 5.5 (5.0-8.0); Specific Gravity - Urine 1.015 (1.005-1.025); UACC Culture Trigger YES; Urine Blood 2+ (NEG); Urine Ketones NEG (NEG); Urine Protein NEG (NEG-TRACE)
[2022-02-11 09:58] LABS: Squamous Epithelial Cell Urine 1+ /LPF
[2022-02-11 09:59] LABS: Bacteria Urine TRACE /LPF; UACC CULT YES
[2022-02-11] MEDS: Lidocaine HCl 2 % Urojet 10 ML JEL.PF.APP TOPICAL (10:50)
--- NOTE | 2022-02-11 14:40 | MHC.HEMONC ---
Pt here for C3D1 Gemcitabine bladder treatment (last treatment) Pt states he feels well today. Urine specimen obtained-specimen to lab. Urine results obtained and sent to Dr Early. Caleb to receive treatment today. #16 coude catheter inserted into urinary meatus with scant amount clear yellow urine returns. 2 Grams (100ml) Gemcitabine instilled into bladder-tolerated well. Catheter removed. Local care given. Pt able to hold treatment for 60 minutes before voiding. Discharge packet given-pt to follow up with Dr Early.
[2022-11-04 12:59] VITALS: BP 164/80; PULSE 94; RESP 18; TEMP 36.8; O2SAT 96; BMI 27.8
[2022-11-04 13:56] LABS: Appearance Urine Clear; Color Urine Yellow; Glucose Urine UA Negative (Negative); Leukocyte Esterase Urine Moderate (2+) (Negative); Nitrite Urine Negative (Negative); PH 5.5 (5.0-9.0); UMIC TRIGGER UA YES; Urine Blood Large (3+) (Negative); Urine Ketones Negative (Negative); Urine Protein 30 (1+) mg/dL (Neg-Trace)
[2022-11-04 14:01] LABS: Bacteria Urine None Seen (None Seen); Hyaline Casts Urine 0-2 /LPF (0-2); RBC Urine >20 /HPF (0-2); Squamous Epithelial Cell Urine 0-2 /HPF (0-2); WBC Urine 21-50 /HPF (0-5)
[2022-11-04] MEDS: Lidocaine HCl 2 % Urojet 10 ML JEL.PF.APP INTRAVESIC (14:29)
--- NOTE | 2022-11-04 16:28 | MHC.HEMONC ---
Here for C1 Mitomycin/Cytarabine bladder instillation. Urine spec sent to lab. Sharlene Barnes ITEM REPAIR MANAGER here to sign consent with pt. Procedure explained to pt and consent signed. Slps Sally present. Results of ua sent to Sharlene. DRE for treatment. Coude catheter #16 passed into bladder and clear yellow urine obtained. Mitomycin/Cytarabine instilled. Catheter left in place for 90 minutes and then removed. Pt tolerated procedure well. Scheduled for next treatment in 1 week. Departed unit.
[2022-11-11 12:57] VITALS: BP 132/70; PULSE 97; RESP 18; TEMP 36.9; O2SAT 98; BMI 27.8
[2022-11-11 13:37] LABS: Appearance Urine Clear; Color Urine Yellow; Glucose Urine UA Negative (Negative); Leukocyte Esterase Urine Moderate (2+) (Negative); Nitrite Urine Negative (Negative); Specific Gravity - Urine 1.015 (1.005-1.025); UMIC TRIGGER UA YES; Urine Blood Moderate (2+) (Negative); Urine Ketones Negative (Negative); Urine Protein 30 (1+) mg/dL (Neg-Trace)
[2022-11-11 13:42] LABS: Bacteria Urine None Seen (None Seen); Hyaline Casts Urine 0-2 /LPF (0-2); Squamous Epithelial Cell Urine 0-2 /HPF (0-2); WBC Urine 21-50 /HPF (0-5)
[2022-11-11] MEDS: Lidocaine HCl 2 % Urojet 10 ML JEL.PF.APP INTRAVESIC (14:36)
--- NOTE | 2022-11-11 16:44 | MHC.HEMONC ---
Pt was in today for C2 Mitomycin/Cytarabine via bladder instillation, pt reported no side effects from last week's tx. Pt was unable to produce a urine sample right away, which slightly delayed tx, was given water. Nurse also provided him w/ 4 specimen cups and educated him to please bring a urine specimen from home next week and for subsequent tx days. Pt provided urine, UA was sent, results shared w/ Dr. Early, who said to proceed w/ tx today. Nurse cleaned pt's urethral meatus w/ betadine and injected lidocaine jelly into urethra. Nurse inserted 16 Fr coude cath into pt's urethral meatus, and filled balloon w/ 10 ml sterile H20, then drained bladder of approx 10 ml clear, yellow urine, then inserted connector plug. Nurse injected Mitomycin/Cytarabine a/o via cath and plugged cath, allowed to instill for 90 minutes, then drained pt's bladder via cath, before deflating balloon and removing cath, then finally performing florentino-care, advising pt to wash w/ soap and water at home as small amount of urine seemed to have leaked from around cath. Pt tolerated procedure well, declined d/c packet, confirmed he will return next 11/18/22 at 13:00.
[2022-11-18 12:49] VITALS: BP 133/72; PULSE 97; RESP 18; TEMP 36.8; O2SAT 95; BMI 38.2
[2022-11-18 13:08] LABS: Appearance Urine Clear; Color Urine Yellow; Glucose Urine UA Negative (Negative); Leukocyte Esterase Urine Moderate (2+) (Negative); Nitrite Urine Negative (Negative); UMIC TRIGGER UA YES; Urine Blood Moderate (2+) (Negative); Urine Ketones Negative (Negative); Urine Protein 30 (1+) mg/dL (Neg-Trace)
[2022-11-18 13:13] LABS: Bacteria Urine None Seen (None Seen); Hyaline Casts Urine 0-2 /LPF (0-2); Squamous Epithelial Cell Urine 0-2 /HPF (0-2); WBC Urine 21-50 /HPF (0-5)
--- NOTE | 2022-11-18 13:46 | MHC.HEMONCSW ---
SW introduced self and role to Pt.
[2022-11-18] MEDS: Lidocaine HCl 2 % Urojet 10 ML JEL.PF.APP INTRAVESIC (14:08)
--- NOTE | 2022-11-18 16:22 | MHC.HEMONC ---
Here for C3 Mitomycin/Cytarabine bladder instillation. Urine spec sent to lab. Results of UA sent to Dr. Early. OK for treatment. Coude catheter #16 passed into bladder and clear yellow urine obtained. Mitomycin/Cytarabine instilled. Catheter left in place for 90 minutes and then removed. Pt tolerated procedure well. Scheduled for next treatment in 1 week. Departed unit.
[2022-11-25 13:04] VITALS: BP 117/67; PULSE 93; RESP 18; TEMP 36.7; O2SAT 96; BMI 26.9
[2022-11-25 13:28] LABS: Appearance Urine Clear; Color Urine Yellow; Glucose Urine UA Negative (Negative); Leukocyte Esterase Urine Moderate (2+) (Negative); Nitrite Urine Negative (Negative); PH 5.5 (5.0-9.0); Specific Gravity - Urine 1.015 (1.005-1.025); UMIC TRIGGER UA YES; Urine Blood Large (3+) (Negative); Urine Ketones Negative (Negative); Urine Protein 30 (1+) mg/dL (Neg-Trace)
[2022-11-25 13:33] LABS: Bacteria Urine None Seen (None Seen); RBC Urine >20 /HPF (0-2); Squamous Epithelial Cell Urine 0-2 /HPF (0-2); WBC Urine >50 /HPF (0-5)
[2022-11-25] MEDS: Lidocaine HCl 2 % Urojet 10 ML JEL.PF.APP INTRAVESIC (14:29)
--- NOTE | 2022-11-25 16:01 | MHC.HEMONC ---
Here for C4 Gemcitabine bladder instillation. Urine spec to lab and results to Dr Early. OK for treatment per Dr Early. Coude catheter 16fr passed into bladder using lidocaine for procedure. Mitomycin/Cytarabine instilled into bladder and tolerated well. Catheter remains in place for 90 minutes.
[2022-12-02 13:04] LABS: Appearance Urine Cloudy; Color Urine Yellow; Glucose Urine UA Negative (Negative); Leukocyte Esterase Urine Large (3+) (Negative); Nitrite Urine Negative (Negative); PH 6.5 (5.0-9.0); Specific Gravity - Urine 1.015 (1.005-1.025); UMIC TRIGGER UA YES; Urine Blood Large (3+) (Negative); Urine Ketones Negative (Negative); Urine Protein 100 (2+) mg/dL (Neg-Trace)
[2022-12-02 13:09] LABS: Bacteria Urine None Seen (None Seen); Hyaline Casts Urine 0-2 /LPF (0-2); RBC Urine >20 /HPF (0-2); Squamous Epithelial Cell Urine 0-2 /HPF (0-2); WBC Urine >50 /HPF (0-5)
[2022-12-02 13:42] VITALS: BP 147/68; PULSE 86; RESP 17; TEMP 37.1; O2SAT 96
[2022-12-02] MEDS: Lidocaine HCl 2 % Urojet 10 ML JEL.PF.APP INTRAVESIC (14:21)
--- NOTE | 2022-12-02 17:00 | MHC.HEMONC ---
Pt arrived for C5 Mitomycin/Cytarabine via bladder instillation, the 5th of 6 ordered txs, pt reported no side effects from last week's tx. Pt brought urine specimen for UA, results were shared w/ Dr. Early, who replied ok to proceed w/ tx today. Nurse cleaned pt's urethral meatus w/ betadine and injected lidocaine jelly into urethra. Nurse inserted 16 Fr coude cath into pt's urethral meatus, and filled balloon w/ 30 ml sterile H20, then drained bladder of approx 50 ml clear, dark yellow urine, then inserted connector plug. Nurse injected Mitomycin/Cytarabine a/o via cath and plugged cath, allowed to instill for 90 minutes, then drained pt's bladder via cath, before deflating balloon and removing cath, then finally performing florentino-care, as nurse visualized purple colored urine on towels left around pt's cath. Nurse advised pt to wash w/ soap and water at home. Pt tolerated procedure well, was given appt calendar, confirmed he will return next 12/09/22 for 6th and final tx.
[2022-12-09 13:18] LABS: Appearance Urine Turbid; Color Urine Dark Yellow; Glucose Urine UA Negative (Negative); Leukocyte Esterase Urine Large (3+) (Negative); Nitrite Urine Negative (Negative); UMIC TRIGGER UA YES; Urine Blood Large (3+) (Negative); Urine Ketones Negative (Negative); Urine Protein 300 (3+) mg/dL (Neg-Trace)
[2022-12-09 13:30] VITALS: BP 133/63; PULSE 112; RESP 20; TEMP 36.5; O2SAT 93
[2022-12-09 13:42] LABS: Bacteria Urine Trace (None Seen); Hyaline Casts Urine 0-2 /LPF (0-2); RBC Urine >20 /HPF (0-2); Squamous Epithelial Cell Urine 0-2 /HPF (0-2); WBC Urine >50 /HPF (0-5)
[2022-12-09] MEDS: Lidocaine HCl 2 % Urojet 10 ML JEL.PF.APP INTRAVESIC (13:42)
--- NOTE | 2022-12-09 16:36 | MHC.HEMONC ---
Here for C6 Mitomycin/Cytarabine bladder instillation. Has no c/o after last treatment. Urine sample to lab and results sent to Dr Early. OK for treatment per Dr Early. Coude catheter 16fr placed into bladder using lidocaine for procedure. [place] urine obtained. Mitomycin/Cytarabine 20cc instilled with some resistance. Catheter remained in for 90 min dwell time as ordered. Catheter removed. Pt to follow up with Dr Early as scheduled. Departed unit.
--- NOTE | 2023-05-31 09:55 | MHC.HEMONC ---
Triage- Pt LVM at the Rx line regarding a refill request. Called pt back, Susanna spoke w/ pt and let him to contact Dr Early for any refills.
== END 2023-07-04 | disposition home or self-care (01) ==
LOC: HO.ONC 13:00
PROVIDERS: PCP Family Medicine; Visit Provider Urology
DX: Z51.11 Encounter for antineoplastic chemotherapy (principal); C67.9 Malignant neoplasm of bladder, unspecified
CPT/HCPCS: 51720; 81001; 81003; 87086; J9100; J9201; J9280